=== PATIENT | male | born 1990 | race African-American/Black ===

== ENCOUNTER 2019-12-03 12:19 | Emergency (ER) | payer OTHER ==
[~2019-12-03] VITALS: Ht 177.8 cm; Wt 104.3 kg
[2019-12-03] MEDS ORDERED: LISINOPRIL2.5 MG PO (12:24)
[2019-12-03] MEDS ORDERED: TRIAMTERENE-HC1 EAC3 PO (12:26)
[2019-12-03 13:07] LABS: BASOPHILS 0.5 % (0.0-2.0); HEMATOCRIT 43.3 % (42.0-52.0); HEMOGLOBIN 14.8 gm/dL (14.0-18.0); LYMPHOCYTES 28.4 % (24.0-44.0); MCH 34.6 pg (26.0-34.0); MCHC 34.3 g/dL (28.0-37.0); MCV 100.9 fL (80.0-100.0); MONOCYTES 5.2 % (1.0-8.0); PLATELET COUNT 284 thou/uL (150-400); POLYS 62.9 % (36.0-66.0); RBC 4.29 mil/uL (4.50-6.00); RDW 15.2 % (10.5-14.5); WBC 7.9 thou/uL (4.0-11.0)
[2019-12-03 13:25] LABS: CALCIUM 9.3 mg/dL (8.5-10.1); CREATININE 1.3 mg/dL (0.7-1.3); POTASSIUM 3.2 mmol/L (3.5-5.1)
[2019-12-03 13:30] LABS: ALBUMIN 3.6 g/dL (3.4-5.0); TOTAL BILIRUBIN 0.4 mg/dL (0.2-1.0); TOTAL PROTEIN 8.4 g/dL (6.4-8.2); URIC ACID* 9.8 mg/dL (3.5-7.2)
[2019-12-03] MEDS ORDERED: INDOMETHACIN 5050 M1 PO (13:50)
[2019-12-03] MEDS ORDERED: PREDNISONE 10 M10 M1 PO (13:50)
[2019-12-03] MEDS ORDERED: NORCO 5-325 TA1 EAC2 PO (13:50)
[2019-12-03 14:13] VITALS: BP 156/74
== END 2019-12-03 14:14 | disposition home or self-care (01) ==
LOC: ER 12:19
PROVIDERS: Physician Assistant
DX: M10.061 Idiopathic gout, right knee (principal); I10 Essential (primary) hypertension; F17.210 Nicotine dependence, cigarettes, uncomplicated; Z79.899 Other long term (current) drug therapy